=== PATIENT | male | born 1995 | race Two or more races ===

== ENCOUNTER 2019-08-05 17:06 | Emergency (ER) | payer SELFPAY ==
[~2019-08-05] VITALS: Ht 177.8 cm; Wt 87.5 kg
[2019-08-05 22:08] VITALS: BP 121/60
== END 2019-08-05 22:10 | disposition home or self-care (01) ==
LOC: ER 17:06
DX: M62.830 Muscle spasm of back (principal); V43.52XA Car driver injured in collision with other type car in traffic accident, initial encounter; Y93.89 Activity, other specified; Y99.8 Other external cause status; Y92.410 Unspecified street and highway as the place of occurrence of the external cause